=== PATIENT | female | born 1995 | race Caucasian/White ===

== ENCOUNTER 2017-01-14 16:57 | Emergency (ER) | payer BC, OTHER ==
[2017-01-14 17:01] VITALS: BP 121/80
[2017-01-14] MEDS ORDERED: ACETAMINOPHEN 325 MG TABLET PO ONE (18:04)
[2017-01-14] MEDS ORDERED: PROMETHAZINE HCL 25 MG TABLET PO ONE (18:04)
--- NOTE | 2017-01-14 18:04 | ER Document Report ---
ED Medical Screen (RME) - General Stated Complaint: HEADACHE Mode of Arrival: Ambulatory Information source: Patient Notes: Patient complains of headache pain off and on for several years. Patient complains of right-sided headache pain for the past 2 weeks. Patient states that headache has waxed and waned in intensity. No fever or head injury. Patient does complain of some nausea. hx; none I have greeted and performed a rapid initial assessment of this patient. A comprehensive ED assessment and evaluation of the patient, analysis of test results and completion of the medical decision making process will be conducted by additional ED providers. TRAVEL OUTSIDE OF THE [place] IN LAST 30 DAYS: No - Related Data Allergies/Adverse Reactions: No Known Allergies Allergy (Verified 01/14/17 18:01) Past Medical History Endocrine Medical History: Denies: Hx Diabetes Mellitus Type 1, Hx Diabetes Mellitus Type 2, Hx Hyperthyroidism Psychiatric Medical History: Reports: Hx Anxiety, Hx Bipolar Disorder, Hx Depression Past Surgical History: Reports: Hx Tubal Ligation - Immunizations Hx Diphtheria, Pertussis, Tetanus Vaccination: Yes - given 2009 Physical Exam - Vital signs Vitals: Temp Pulse Resp BP Pulse Ox 98.2 F 78 14 121/80 100 01/14/17 17:00 01/14/17 17:00 01/14/17 17:00 01/14/17 17:00 01/14/17 17:00 - Neurological Neuro grossly intact: Yes Cognition: Normal Jimmy Coma Scale Eye Opening: Spontaneous Jimmy Coma Scale Verbal: Oriented Jimmy Coma Scale Motor: Obeys Commands Jimmy Coma Scale Total: 15 Course - Vital Signs Vital signs: Temp Pulse Resp BP Pulse Ox 98.2 F 78 14 121/80 100 01/14/17 17:00 01/14/17 17:00 01/14/17 17:00 01/14/17 17:00 01/14/17 17:00
[2017-01-14] MEDS ORDERED: NORMAL SALINE 1000 ML 1,000 ML IV ONE (20:41)
[2017-01-14] MEDS ORDERED: KETOROLAC TROMETHAMINE INJ/PF 30 MG/1 ML SDV IV ONE (20:41)
[2017-01-14] MEDS ORDERED: DIPHENHYDRAMINE HCL 50 MG/ML VIAL IV ONE (20:41)
[2017-01-14] MEDS ORDERED: ONDANSETRON HCL INJ/PF 4 MG/2 ML SDV IV ONE (20:41)
--- NOTE | 2017-01-14 20:43 | ER Document Report ---
ED Headache - General Chief Complaint: Headache Stated Complaint: HEADACHE Time seen by provider: 20:42 Mode of Arrival: Ambulatory Information source: Patient Notes: 21-year-old female presents to ED for headache off and on for several years worse for the last 3 months. She has not been to a neurologist. She complains of right-sided head pain for the last 2 weeks. He states the headache comes and goes but like is that for the last 2 weeks has been worse. She does have some nausea. TRAVEL OUTSIDE OF THE [place] IN LAST 30 DAYS: No - HPI Patient complains to provider of: "Migraine" Patient reports: Hx chronic headaches Onset: Other - Several years this headache is been going on and off for 2 weeks Timing: Still present Quality of pain: Sharp, Throbbing Severity: Moderate Pain Level: 3 Associated symptoms: Nausea/vomiting Exacerbated by: Light, Noise Similar symptoms previously: Yes Recently seen / treated by doctor: No - Related Data Allergies/Adverse Reactions: No Known Allergies Allergy (Verified 01/14/17 18:01) Past Medical History - General Information source: Patient - Social History Smoking Status: Never Smoker Chew tobacco use (# tins/day): No Frequency of alcohol use: None Drug Abuse: None Lives with: Spouse/Significant other Family History: Arthritis, CAD, COPD, CVA, DM, Hyperlipidemia, Hypertension Patient has suicidal ideation: No Patient has homicidal ideation: No - Medical History Medical History: Other - Anemia - Past Medical History Cardiac Medical History: Reports: Hx Hypertension Pulmonary Medical History: Reports: None EENT Medical History: Reports: None Neurological Medical History: Reports: Hx Migraine - About 4 years worse last 2- 3 months and even worse the last 2-3 weeks Endocrine Medical History: Reports: None Renal/ Medical History: Reports: None Malignancy Medical History: Reports: None GI Medical History: Reports: None Musculoskeltal Medical History: Reports Hx Musculoskeletal Trauma Skin Medical History: Reports None Psychiatric Medical History: Reports: Hx Anxiety, Hx Bipolar Disorder, Hx Depression, Other - depression with each child Traumatic Medical History: Reports: None Infectious Medical History: Reports: None Past Surgical History: Reports: Hx Tubal Ligation - Immunizations Hx Diphtheria, Pertussis, Tetanus Vaccination: Yes - given 2009 Hx Pneumococcal Vaccination: 10/25/00 Review of Systems - Review of Systems Constitutional: No symptoms reported EENT: Nose discharge, Sinus discharge Cardiovascular: No symptoms reported Respiratory: Cough Gastrointestinal: No symptoms reported Genitourinary: No symptoms reported Female Genitourinary: No symptoms reported Musculoskeletal: No symptoms reported Skin: No symptoms reported Hematologic/Lymphatic: No symptoms reported Neurological/Psychological: No symptoms reported -: Yes All other systems reviewed and negative Physical Exam - Vital signs Vitals: Temp Pulse Resp BP Pulse Ox 98.2 F 78 14 121/80 100 01/14/17 17:00 01/14/17 17:00 01/14/17 17:00 01/14/17 17:00 01/14/17 17:00 Interpretation: Normal - General General appearance: Appears well, Alert - HEENT Head: Normocephalic, Atraumatic Eyes: Normal Pupils: PERRL Visual salazar normal: Yes Ears: Normal External canal: Normal Tympanic membrane: Normal Sinus: Normal Nasal: Swelling, Clear rhinorrhea Mouth/Lips: Normal, Other Pharynx: Normal Neck: Normal - Respiratory Respiratory status: No respiratory distress Chest status: Nontender Breath sounds: Normal Chest palpation: Normal - Cardiovascular Rhythm: Regular Heart sounds: Normal auscultation Murmur: No - Abdominal Inspection: Normal Distension: No distension Bowel sounds: Normal Tenderness: Nontender Organomegaly: No organomegaly - Back Back: Normal, Nontender - Extremities General upper extremity: Normal inspection, Nontender, Normal color, Normal ROM , Normal temperature General lower extremity: Normal inspection, Nontender, Normal color, Normal ROM , Normal temperature, Normal weight bearing. No: Denise's sign - Neurological Neuro grossly intact: Yes Cognition: Normal Orientation: AAOx4 Jimmy Coma Scale Eye Opening: Spontaneous Jimmy Coma Scale Verbal: Oriented Jimmy Coma Scale Motor: Obeys Commands [place] Coma Scale Total: 15 Speech: Normal Cranial nerves: Normal Cerebellar coordination: Normal Motor strength normal: LUE, RUE, LLE, RLE Additional motor exam normals: Equal assistance coordinator Babinski reflex: Normal (flexor plantar) Sensory: Normal - Psychological Associated symptoms: Normal affect, Normal mood - Skin Skin Temperature: Warm Skin Moisture: Dry Skin Color: Normal Course - Re-evaluation Re-evalutation: 01/14/17 22:36 Cranial nerves grossly intact patient has a history of migraines. She also has a slight cold with postnasal drip. Patient has been informed that she needs to get herself a regular primary doctor she has a psychologist at [facility]. Told her she needs to get a neurology consult to treat her migraines and to control her migraines. Patient received relief with her Zofran, Benadryl, Toradol and IV fluids she states now here he had just feels a little sore does not hurt like it was before. Patient verbalized understanding of the need to get a neurologist to control her migraines. - Vital Signs Vital signs: Temp Pulse Resp BP Pulse Ox 98.2 F 78 14 121/80 100 01/14/17 17:00 01/14/17 17:00 01/14/17 17:00 01/14/17 17:00 01/14/17 17:00 Discharge - Discharge Clinical Impression: Headache Qualifiers: Headache type: unspecified Headache chronicity pattern: chronic headache Intractability: not intractable Qualified Code(s): R51 - Headache Condition: Stable Disposition: HOME, SELF-CARE Additional Instructions: HEADACHE: The physician does not feel that the headache you are experiencing has a serious underlying cause. Most headaches are due to emotional stress, with resultant muscle tension (tension headache). Occasionally, headaches are secondary to changes in the blood vessels of the scalp (vascular headache and migraine headache). Sometimes, a headache is the first symptom of another developing illness, such as a viral infection. You have no evidence of stroke, bleeding, meningitis, or other serious cause of your headache. The treatment of headaches varies with the severity and cause of the pain. Not all headaches need pain shots. In fact, there is evidence that using narcotics for headaches may make them worse in the long run. The physician will determine the therapy that's in your best interest. If you develop a fever, if the headache is different from any you've previously experienced, or if the headache progressively worsens, then call your physician at once or go to the emergency room. USE OF DIPHENHYDRAMINE: Diphenhydramine (Benadryl) is an antihistamine and has been recommended to help treat your headache and to prevent side effects of other medications used to treat headaches. The medication can be repeated four times daily. Age Elixir (12.5 mg/tsp) 25 mg pill adult 1-2 tabs Antihistamines may cause drowsiness, especially with the first dose. Do not operate machinery or drive while under the effects of the medication. Do not combine the medication with alcohol, or with any other medication without talking to your doctor. ANTINAUSEA MEDICATION: You have been given a medication to suppress nausea and vomiting. This type of medication can be given as a shot, pill, or suppository. It will usually last for many hours. Pills and shots usually last six to eight hours, suppositories last about 12 hours. For the typical illness, only one or two doses of the medication may be necessary. Mild lightheadedness may occur. This type of medicine can cause drowsiness. Do not drive or operate dangerous machinery while under its influence. Do not mix with alcohol. See your doctor at once if you have muscle spasms or tightness, or uncontrollable motions (particularly of the neck, mouth, or jaw). Persistent vomiting or severe lightheadedness should also be evaluated by the physician. TORADOL INJECTION: You have been given an injection of ketorolac tromethamine (Toradol). This is an excellent, safe drug for pain control. It also has potent antiinflammatory action. You should have significant pain relief within about one hour. Toradol is not addicting and is non-sedating. It does not interfere with driving or work. Call or return if you develop itching, hives, shortness of breath, or rash. Intravenous (IV) Fluids As part of your care today, you received intravenous (IV) fluids. IV fluids are administered to patients who are dehydrated or to those who have certain chemical (electrolyte) abnormalities that need correcting. FOLLOW-UP CARE: If you have been referred to a physician for follow-up care, call the physician s office for an appointment as you were instructed or within the next two days. If you experience worsening or a significant change in your symptoms, notify the physician immediately or return to the Emergency Department at any time for re-evaluation. Forms: Return to Work Referrals: HELEN JEFFERY MD [Primary Care Provider] - Follow up as needed
== END 2017-01-14 22:57 | disposition home or self-care (01) ==
LOC: ER 16:57
DX: G43.909 Migraine, unspecified, not intractable, without status migrainosus (principal); R11.2 Nausea with vomiting, unspecified; I10 Essential (primary) hypertension; J34.89 Other specified disorders of nose and nasal sinuses; R05 Cough; R09.82 Postnasal drip
CPT/HCPCS: 99283; 96374; 96375; J1200; J1885; J2405

== ENCOUNTER 2017-03-10 22:00 | Emergency (ER) | payer BC ==
[2017-03-10] MEDS ORDERED: NORMAL SALINE 1000 ML 1,000 ML IV ONE (22:17)
--- NOTE | 2017-03-10 22:44 | ER Document Report ---
ED Psych Disorder / Suicide <DAKOTA NGUYENIME - Last Filed: 03/11/17 14:27> <VERITO LUNA - Last Filed: 03/11/17 15:24> - General Mode of Arrival: Medic Information source: Patient, Emergency Med Personnel, [facility] Records TRAVEL OUTSIDE OF THE [place] IN LAST 30 DAYS: No <CASEY NOONAN - Last Filed: 03/12/17 11:51> - General Chief Complaint: Overdose Stated Complaint: SUICIDAL IDEATION,POSSIBLE OVERDOSE Time Seen by Provider: 03/10/17 22:12 Notes: This 21-year-old female patient comes emergency room by EMS after an Ambien overdose. By history she took 4 Ambien at 4 PM today and then took 8 more about 9 PM. Review of the [place] controlled substance database shows these are 10 mg Ambien. 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 She states that she has been feeling down for quite some time, and today "did not want to feel anything". She denies actually trying to kill herself. She lives with her boyfriend, she has 3 children ages almost 2, 3 and 4 who live with her grandmother. (SARAN,CASEY) - Related Data Allergies/Adverse Reactions: No Known Allergies Allergy (Verified 01/14/17 18:01) Past Medical History - General Information source: Patient, Law Enforcement, [facility] Records - Social History Smoking Status: Never Smoker Cigarette use (# per day): No Chew tobacco use (# tins/day): No Smoking Education Provided: No Frequency of alcohol use: None Drug Abuse: None Occupation: UNEMPLOYED Lives with: Friend - BOYFRIEND Family History: Arthritis, CAD, COPD, CVA, DM, Hyperlipidemia, Hypertension Patient has suicidal ideation: Yes Patient has homicidal ideation: No - Past Medical History Cardiac Medical History: Reports: Hx Hypertension Neurological Medical History: Reports: Hx Migraine - About 4 years worse last 2- 3 months and even worse the last 2-3 weeks Musculoskeltal Medical History: Reports Hx Musculoskeletal Trauma Psychiatric Medical History: Reports: Hx Anxiety, Hx Bipolar Disorder, Hx Depression Past Surgical History: Reports: Hx Tubal Ligation - Immunizations Hx Diphtheria, Pertussis, Tetanus Vaccination: Yes - given 2009 Hx Pneumococcal Vaccination: 10/25/00 <CASEY NOONAN - Last Filed: 03/12/17 11:51> Review of Systems - Review of Systems Constitutional: No symptoms reported EENT: No symptoms reported Cardiovascular: No symptoms reported Respiratory: No symptoms reported Gastrointestinal: No symptoms reported Genitourinary: No symptoms reported Female Genitourinary: See HPI - Just finished my period. Musculoskeletal: No symptoms reported Skin: No symptoms reported Hematologic/Lymphatic: No symptoms reported Neurological/Psychological: Depression, Anxiety <CASEY NOONAN - Last Filed: 03/12/17 11:51> Physical Exam - Vital signs Interpretation: Normal - General General appearance: Other - A little drowsy, easily aroused for H&P. In distress: None - HEENT Head: Normocephalic, Atraumatic Eyes: Normal Pupils: PERRL Mucous membranes: Normal Neck: Normal - Respiratory Respiratory status: No respiratory distress - Cardiovascular Rhythm: Regular - Abdominal Inspection: Obese - Back Back: Normal - Extremities General upper extremity: Normal inspection General lower extremity: Normal inspection - Neurological Neuro grossly intact: Yes Cognition: Normal Orientation: AAOx4 - Psychological Associated symptoms: Depressed - Skin Skin Temperature: Warm Skin Moisture: Dry Skin Color: Normal <CASEY NOONAN - Last Filed: 03/12/17 11:51> - Vital signs Vitals: Temp Pulse Resp BP Pulse Ox 97.8 F 74 18 116/72 97 03/10/17 22:07 03/10/17 22:07 03/10/17 22:07 03/10/17 22:07 03/10/17 22:07 Course - Laboratory Result Diagrams: 03/11/17 00:29 03/11/17 00:29 <BATOOL NGUYEN - Last Filed: 03/11/17 14:27> - Laboratory Result Diagrams: 03/11/17 00:29 03/11/17 00:29 <VERITO LUNA - Last Filed: 03/11/17 15:24> - Laboratory Result Diagrams: 03/11/17 00:29 03/11/17 00:29 - EKG Interpretation by Ct EKG shows normal: Sinus rhythm, [place], Intervals, QRS Complexes, ST-T Waves Rate: Normal - 95 Rhythm: NSR - Transfer of Care Care transferred to following provider: Dr. Smith <CASEY NOONAN - Last Filed: 03/12/17 11:51> - Vital Signs Vital signs: Temp Pulse Resp BP Pulse Ox 98.5 F 91 20 112/82 98 03/11/17 15:30 03/11/17 15:30 03/11/17 15:30 03/11/17 15:30 03/11/17 15:30 - Laboratory Laboratory results interpreted by me: 03/10/17 03/11/17 03/11/17 23:45 00:29 00:29 Seg Neutrophils % 79.6 H Absolute Neutrophils 8.4 H Urine Nitrite POSITIVE H Ur Leukocyte Esterase TRACE H Salicylates < 1.0 L Acetaminophen < 10 L - Transfer of Care Notes: 03/11/17 02:02 Pt pending psych eval in the morning. (CASEY NOONAN) Discharge <BATOOL NGUYEN - Last Filed: 03/11/17 14:27> <VERITO LUNA - Last Filed: 03/11/17 15:24> <CASEY NOONAN - Last Filed: 03/12/17 11:51> - Discharge Clinical Impression: Substance abuse, Anxiety Overdose Qualifiers: Encounter type: initial encounter Injury intent: intentional self-harm Qualified Code(s): T50.902A - Poisoning by unspecified drugs, medicaments and biological substances, intentional self-harm, initial encounter Bipolar disorder, unspecified Qualifiers: Active/Remission status: currently active Current bipolar episode type: depressed Current episode severity: mild Qualified Code(s): F31.31 - Bipolar disorder, current episode depressed, mild Clinical Impression: (Ruled Out): Depression Condition: Stable Disposition: HOME, SELF-CARE Additional Instructions: DEPRESSION: Your evaluation reveals that you have mental depression. While symptoms may be vague, they often include disturbance of sleep, fatigue, loss of appetite , and general loss of interest in life. While depression may be a side effect of drugs, or a reaction to a major change in your life, many cases have no known cause. If depression is acute, and related to a major loss in your life, you can expect it to clear completely with time. If you have been depressed a long time , are prone to repeated bouts of depression or low mood, or have been thinking of suicide, get help. Depression can be treated with anti-depressant medication and counselling. Long-term depression will often take a few weeks to clear, even with appropriate medication. Follow-up care is important. SUICIDAL IDEATION: Suicidal ideation is a common medical term for thoughts about suicide, which may be as detailed as a formulated plan, without the suicidal act itself. Although most people who undergo suicidal ideation do not commit suicide, some go on to make suicide attempts. The range of suicidal ideation varies greatly from fleeting to detailed planning, role playing, and unsuccessful attempts. While thoughts about suicide are common, most people do not carry out serious actions to commit suicide. Based upon your evaluation and discussion with you, we do not believe you are currently at risk to act upon your thoughts of suicide. You have agreed to return to the Emergency Department, at any time , if you feel inclined to act upon your suicidal thoughts. FOLLOW-UP CARE: Please follow up with outpatient provider, [facility] on 03/12/2017 at 8:00am. Please bring your ID, social security card and insurance card to your appointment. If you experience worsening or a significant change in your symptoms, notify the physician immediately or return to the Emergency Department at any time for re- evaluation. Referrals: [facility] [Outside] - 03/12/17 8:00 am Scribe Attestation: 03/12/17 11:51 I personally performed the services described in the documentation, reviewed and edited the documentation which was dictated to the scribe in my presence, and it accurately records my words and actions. (CASEY NOONAN)
[2017-03-11 00:24] LABS: APPEARANCE,URINE SLIGHTLY-CLOUDY; BILIRUBIN,URINE NEGATIVE (NEGATIVE); GLUCOSE, URINE NEGATIVE (NEGATIVE); KETONES,URINE NEGATIVE (NEGATIVE); LEUKOCYTE ESTERASE,URINE TRACE (NEGATIVE); NITRITE,URINE POSITIVE (NEGATIVE); PROTEIN,URINE NEGATIVE (NEGATIVE); URINE SPECIFIC GRAVITY 1.026; UROBILINOGEN,URINE NEGATIVE mg/dL (<2.0)
[2017-03-11 00:29] LABS: URINE BARBITURATES SCREEN NEGATIVE; URINE METHADONE SCREEN NEGATIVE; URINE OPIATES LOW NEGATIVE; URINE PHENCYCLIDINE SCREEN NEGATIVE
[2017-03-11 00:39] LABS: ABSOLUTE BASOPHILS # (AUTO) 0.1 10^3/uL (0.0-0.2); ABSOLUTE LYMPHOCYTES (AUTO) 1.7 10^3/uL (0.5-4.7); ABSOLUTE MONOCYTES (AUTO) 0.4 10^3/uL (0.1-1.4); ABSOLUTE NEUT (AUTO) 8.4 10^3/uL (1.7-8.2); BASOPHILS % (AUTO) 0.6 % (0-2); EOSINOPHILS % (AUTO) 0.2 % (0-6); HEMATOCRIT 40.5 % (36.0-47.0); HEMOGLOBIN 14.4 g/dL (12.0-15.5); HGB HCT DIFFERENCE 2.7; LYMPHOCYTES % (AUTO) 16.1 % (13-45); MEAN CORPUSCULAR HEMOGLOBIN 29.3 pg (27.0-33.4); MEAN CORPUSCULAR HGB CONC 35.6 g/dL (32.0-36.0); MEAN CORPUSCULAR VOLUME 82 fl (80-97); MONOCYTES % (AUTO) 3.5 % (3-13); RED BLOOD COUNT 4.91 10^6/uL (3.72-5.28); SEGMENTED NEUTROPHILS % (AUTO) 79.6 % (42-78); WHITE BLOOD COUNT 10.5 10^3/uL (4.0-10.5)
[2017-03-11 00:58] LABS: ALANINE AMINOTRANSFERASE 31 U/L (9-52); ALBUMIN 4.5 g/dL (3.5-5.0); ALCOHOL < 10 mg/dL (NONE DETECTED); ALKALINE PHOSPHATASE 75 U/L (38-126); ANION GAP 12 (5-19); ASPARTATE AMINO TRANSFERASE 22 U/L (14-36); BILIRUBIN,DIRECT 0.2 mg/dL (0.0-0.4); BILIRUBIN,TOTAL 1.2 mg/dL (0.2-1.3); BLOOD UREA NITROGEN 13 mg/dL (7-20); CALCIUM 9.7 mg/dL (8.4-10.2); CARBON DIOXIDE 22 mmol/L (22-30); CHLORIDE 105 mmol/L (98-107); CREATININE RESULT 0.71 mg/dL (0.52-1.25); GLUCOSE 104 mg/dL (75-110); POTASSIUM 4.5 mmol/L (3.6-5.0); SODIUM 138.8 mmol/L (137-145); TOTAL PROTEIN 7.8 g/dL (6.3-8.2)
--- NOTE | 2017-03-11 10:38 | EKG REPORT ---
SEVERITY:- NORMAL ECG - SINUS RHYTHM : Confirmed by: Olga Lyn MD 11-Mar-2017 10:37:29
--- NOTE | 2017-03-11 14:27 | PSYCHOLOGICAL NOTE ---
Psych Note - Psych Note Psych Note: This 21-year-old female patient comes emergency room by EMS after an Ambien overdose. By history she took 4 Ambien at 4 PM today and then took 8 more about 9 PM. Review of the [place] controlled substance database shows these are 10 mg Ambien. 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 She states that she has been feeling down for quite some time, and today "did not want to feel anything". She denies actually trying to kill herself. She lives with her boyfriend, she has 3 children ages almost 2, 3 and 4 who live with her grandmother. Patient states she took "12-13 Ambien" when ask how the patient knew that was how much she took, she stated that was how much was left in the bottle. She continued to disclose she had a "really bad day" because "everything was happening and I didn't take my normal medication." She continued to disclose that it has been a week since she took her prescribed medication. She states her medication made her nauseous. She disclosed her mental health provider told her that it would "be a while" before she felt anything but that she would "then feel nauseous." She disclosed that she took the medication for a month and then stopped because she started to feel nausea and didn't like it. Patient was supposed to follow up with [facility] however she rep[orts she is unable to because she "owe them money and they put a hold on my account." Patient's boyfriend, [place] [phone], states he will be part of the discharge plan and will ensure the patient has no access to medications and weapons. He continued to disclose that he will assist the patient in following up with outpatient provider for mental health and taking her medications as prescribed. Patient is alert and orientated to person, place, time and circumstance. Mood is euthymic with congruent affect; clinician notes some irritability with boyfriend. Patient denies suicidal and homicidal ideation. clinician notes patient demonstrated suicidal gesture; however per history, patient has sedative anxiolytic drug abuse issue. patient denies auditory and visual hallucinations; patient is not demonstrating behaviour congruent with responding to internal stimuli (i.e. good eye contact and though processes are organized). No delusions are noted. Thought process is organized and linear. Eye contact was well maintained. Attention and concentration and good. Insight , judgment and impulse control are fair. 296.80 (F31.9) Unspecified Bipolar and related disorder per history provided by patient. 300.00 (F41.9) Unspecified Anxiety disorder per history provided by patient 292.9 (F13.99) Unspecified sedative-, hypnotic-, or anxiolyitc-related disorder per history Impression/plan: patient is considered psychiatrically cleared for discharge. Patient does not meet IVC criteria per [place] GS 122C. Patient is recommended to follow up with outpatient services through [facility]. Patient denies suicidal and homicidal ideation and patient's live in boyfriend agrees to be part of the discharge plan. Dr. Mercado was consulted on the care and management of this patient; attending physician is in agreement with recommendations and disposition.
--- NOTE | 2017-03-11 15:29 | ER Document Report ---
Doctor's Note Notes: 03/11/17 15:27 Rounds: Chart reviewed and patient interview. Vital signs are all normal. Lab studies are all essentially normal. Patient appears to be medically stable for transfer or discharge. Patient has been assessed by mental health and they feel that she can be discharged and follow-up as an outpatient tomorrow morning. Patient says she is no longer feeling suicidal. Patient will be discharged for outpatient follow-up. Miguel Werner MD
[2017-03-11 15:35] VITALS: BP 112/82
== END 2017-03-11 15:35 | disposition home or self-care (01) ==
LOC: ER 22:00
DX: F19.10 Other psychoactive substance abuse, uncomplicated (principal); T42.6X2A Poisoning by other antiepileptic and sedative-hypnotic drugs, intentional self-harm, initial encounter; F31.31 Bipolar disorder, current episode depressed, mild; F41.9 Anxiety disorder, unspecified; I10 Essential (primary) hypertension; F13.99 Sedative, hypnotic or anxiolytic use, unspecified with unspecified sedative, hypnotic or anxiolytic-induced disorder; Z98.51 Tubal ligation status
CPT/HCPCS: 36415; 80053; 80307; 81001; 84703; 85025; 93005; 93010; 99285

== ENCOUNTER 2018-03-07 15:05 | Emergency (ER) | payer SELFPAY ==
[2018-03-07] MEDS ORDERED: ONDANSETRON 4 MG TAB.RAPDIS PO ONE (16:26)
[2018-03-07 16:30] VITALS: BP 121/75
--- NOTE | 2018-03-07 16:31 | ER Document Report ---
ED General - General Chief Complaint: Abdominal pain/back pain/N/V / STEEL Stated Complaint: BACK/ABDOMINAL PAIN Time Seen by Provider: 03/07/18 16:21 Notes: 22-year-old female here with complaints of lower back pain abdominal cramping nausea vomiting shortness of breath body aches ongoing since July of last year. All the symptoms are intermittent. She has been taking Aleve for the symptoms. She does not have anything for the nausea. She denies any fevers chills dysuria hematuria hesitancy numbness tingling weakness incontinence retention. She does not have a doctor and cannot tell me why she has not established care with one. TRAVEL OUTSIDE OF THE [place] IN LAST 30 DAYS: No - Related Data Allergies/Adverse Reactions: No Known Allergies Allergy (Verified 01/14/17 18:01) Past Medical History - Social History Smoking Status: Never Smoker Chew tobacco use (# tins/day): No Frequency of alcohol use: Occasional Drug Abuse: Marijuana Family History: Arthritis, CAD, COPD, CVA, DM, Hyperlipidemia, Hypertension Patient has suicidal ideation: No Patient has homicidal ideation: No - Past Medical History Cardiac Medical History: Reports: Hx Hypertension Neurological Medical History: Reports: Hx Migraine - About 4 years worse last 2- 3 months and even worse the last 2-3 weeks Renal/ Medical History: Denies: Hx Peritoneal Dialysis Musculoskeltal Medical History: Reports Hx Musculoskeletal Trauma Psychiatric Medical History: Reports: Hx Anxiety, Hx Bipolar Disorder, Hx Depression Past Surgical History: Reports: Hx Tubal Ligation - Immunizations Hx Diphtheria, Pertussis, Tetanus Vaccination: Yes - given 2009 Hx Pneumococcal Vaccination: 10/25/00 Review of Systems - Review of Systems Notes: See history of present illness for pertinent positive review of systems; otherwise all review of systems have been reviewed and are negative Physical Exam - Vital signs Vitals: Temp Pulse Resp BP Pulse Ox 98.3 F 73 18 126/86 H 99 03/07/18 15:14 03/07/18 15:14 03/07/18 15:14 03/07/18 15:14 03/07/18 15:14 - Notes Notes: PHYSICAL EXAMINATION: GENERAL: Well-appearing and in no acute distress. HEAD: Atraumatic, normocephalic. EYES: Pupils equal round and reactive to light, extraocular movements intact, sclera anicteric, conjunctiva are normal. ENT: nares patent, oropharynx clear without exudates. Moist mucous membranes. NECK: Normal range of motion, supple without lymphadenopathy LUNGS: CTAB and equal. No wheezes rales or rhonchi. HEART: Regular rate and rhythm without murmurs ABDOMEN: Soft, no tenderness. No facial grimacing/wincing upon palpation. No guarding, no rebound. BACK: No thoracic or lumbar back tenderness to palpation; strength 5/5 with intact sensation BLEs EXTREMITIES: Normal range of motion, no pitting edema. No cyanosis. NEUROLOGICAL: Cranial nerves grossly intact. Normal sensory/motor exams. PSYCH: Normal mood, normal affect. SKIN: Warm, Dry, normal turgor, no rashes or lesions noted Course - Re-evaluation Re-evalutation: 03/07/18 16:30 MEDICAL DECISION MAKING: Ongoing chronic symptoms She does not have an acute emergency medical condition at this time Discussed with her follow-up with a PCP If no PCP, discussed with [facility] and info provided in DC instructions Home with prescription Zofran meloxicam Patient understands and agrees to the plan of care - Vital Signs Vital signs: Temp Pulse Resp BP Pulse Ox 98.3 F 73 18 126/86 H 99 03/07/18 15:14 03/07/18 15:14 03/07/18 15:14 03/07/18 15:14 03/07/18 15:14 Discharge - Discharge Clinical Impression: Abdominal cramping Chronic low back pain without sciatica Qualifiers: Back pain laterality: bilateral Qualified Code(s): M54.5 - Low back pain; G89.29 - Other chronic pain; G89.29 - Other chronic pain Nausea & vomiting Qualifiers: Vomiting type: unspecified Vomiting Intractability: non-intractable Qualified Code(s): R11.2 - Nausea with vomiting, unspecified Condition: Good Disposition: HOME, SELF-CARE Additional Instructions: You were seen in the emergency department at [facility]. Use the prescribed medication as needed for your symptoms. Please followup with a primary physician in the next few days for further management/evaluation. Please return to the emergency department for worsening of symptoms or any symptom that you deem to be concerning or life-threatening. Thank you for allowing us to be part of your care. Prescriptions: Meloxicam 7.5 mg PO DAILYP PRN #7 tablet PRN Reason: Ondansetron [Zofran Odt 4 mg Tablet] 1 tab PO Q4H PRN #15 tab.rapdis PRN Reason: For Nausea/Vomiting Referrals: [facility] [Provider Group] - 03/07/18
== END 2018-03-07 16:32 | disposition home or self-care (01) ==
LOC: ER 15:05
DX: R10.9 Unspecified abdominal pain (principal); R11.2 Nausea with vomiting, unspecified; R06.02 Shortness of breath; M54.5 Low back pain; G89.29 Other chronic pain; I10 Essential (primary) hypertension; Z98.51 Tubal ligation status
CPT/HCPCS: 99283; S0119

== ENCOUNTER 2020-06-25 08:27 | Emergency (ER) | payer SELFPAY ==
--- NOTE | 2020-06-25 10:36 | ER Document Report ---
ED GI/ - General Chief Complaint: Abdominal Pain Stated Complaint: ABDOMINAL PAIN Time Seen by Provider: 06/25/20 10:00 Notes: CHIEF COMPLAINT: Pelvic pain HPI: 24-year-old female presenting for pelvic pain for the last week. States she has very irregular menstrual cycles. Had a menstrual cycle last week that lasted 4 days and the bleeding stopped but she continued to have pelvic pain more prominent on the left side no history of ovarian cyst. Is not bleeding currently. No fever. No nausea. No vomiting ROS: See HPI - all other systems were reviewed and are otherwise negative Constitutional: no fever or recent illness Eyes: no drainage, no blurred vision ENT: no runny nose, no sore throat Cardiovascular: no chest pain Resp: no SOB, no cough GI: no vomiting, no diarrhea : no dysuria, no vaginal discharge, positive pelvic pain Integumentary: no rash Allergy: no hives Musculoskeletal: no extremity pain or swelling Neurological: no numbness/tingling, no weakness MEDICATIONS: I agree with the patient medications as charted by the RN. ALLERGIES: I agree with the allergies as charted by the RN. PAST MEDICAL HISTORY/PAST SURGICAL HISTORY: Reviewed and agree as charted by RN. SOCIAL HISTORY: Reviewed and agree as charted by RN. FAMILY HISTORY: No significant familial comorbid conditions directly related to patient complaint EXAM: Reviewed vital signs as charted by RN. CONSTITUTIONAL: Alert and oriented and responds appropriately to questions. Well-appearing; well-nourished HEAD: Normocephalic; atraumatic EYES: PERRL; Conjunctivae clear, sclerae non-icteric ENT: normal nose; no rhinorrhea; moist mucous membranes; pharynx without lesions noted NECK: Supple without meningismus; non-tender; no cervical lymphadenopathy, no masses CARD: RRR; no murmurs, no clicks, no rubs, no gallops; symmetric distal pulses RESP: Normal chest excursion without splinting or tachypnea; breath sounds clear and equal bilaterally; no wheezes, no rhonchi, no rales ABD/GI: Normal bowel sounds; non-distended; soft, non-tender, no rebound, no guarding; no palpable organomegaly or masses : 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 External genitalia normal. No skin lesions noted. Pelvic Exam: No active bleeding. No purulent discharge. Cervix appears normal. No CMT. No lesions or masses. Uterus normal size and non tender. Right/Left adnexa normal size and mildly tender left adnexa. BACK: The back appears normal and is non-tender to palpation, there is no CVA tenderness EXT: Normal ROM in all joints; non-tender to palpation; no cyanosis, no effusions, no edema SKIN: Normal color for age and race; warm; dry; good turgor; no acute lesions noted NEURO: Moves all extremities equally; Motor and sensory function intact PSYCH: The patient's mood and manner are appropriate. Grooming and personal hygiene are appropriate. MDM: 24-year-old female presenting with pelvic pain over the last week which she states is not normal for her. Will obtain ultrasound to evaluate for ovarian cyst TRAVEL OUTSIDE OF THE [place] IN LAST 30 DAYS: No - Related Data Allergies/Adverse Reactions: No Known Allergies Allergy (Verified 01/14/17 18:01) Past Medical History - Social History Smoking Status: Unknown if Ever Smoked Family History: Arthritis, CAD, COPD, CVA, DM, Hyperlipidemia, Hypertension - Past Medical History Cardiac Medical History: Reports: Hx Hypertension Neurological Medical History: Reports: Hx Migraine - About 4 years worse last 2- 3 months and even worse the last 2-3 weeks Renal/ Medical History: Denies: Hx Peritoneal Dialysis Musculoskeletal Medical History: Reports Hx Musculoskeletal Trauma Psychiatric Medical History: Reports: Hx Anxiety, Hx Bipolar Disorder, Hx Depression Past Surgical History: Reports: Hx Tubal Ligation - Immunizations Hx Diphtheria, Pertussis, Tetanus Vaccination: Yes - given 2009 Hx Pneumococcal Vaccination: 10/25/00 Physical Exam - Vital signs Vitals: Temp Pulse Resp BP Pulse Ox 97.9 F 59 L 20 127/78 H 100 06/25/20 08:32 06/25/20 08:32 06/25/20 08:32 06/25/20 08:32 06/25/20 08:32 Course - Re-evaluation Re-evalutation: 06/25/20 12:13 Patient is a 2.9 right sided hemorrhagic ovarian cyst I discussed this with the patient she will follow-up with [facility] - Vital Signs Vital signs: Temp Pulse Resp BP Pulse Ox 97.9 F 59 L 20 127/78 H 100 06/25/20 08:32 06/25/20 08:32 06/25/20 08:32 06/25/20 08:32 06/25/20 08:32 - Laboratory Laboratory results interpreted by me: 06/25/20 10:30 Urine Blood SMALL H Discharge - Discharge Clinical Impression: Acute pelvic pain, female, Hemorrhagic cyst of right ovary Condition: Stable Disposition: HOME, SELF-CARE Additional Instructions: Pain medications as prescribed, follow-up with [facility]IANCE [facility]ICER for further evaluation and treatment call for appointment. It was noted on your imaging studies today that you have an ovarian cyst on the right ovary. This is likely causing your pain Prescriptions: Naproxen 500 mg PO BID PRN #14 tablet PRN Reason: Oxycodone HCl/Acetaminophen [Percocet 5-325 mg Tablet] 1 tab PO Q4H PRN #15 tab PRN Reason: Referrals: ETHAN CURIEL MD [ACTIVE PROVISIONAL STAFF] - Follow up as needed
[2020-06-25 10:58] LABS: T.VAGINALIS (WET MOUNT) NO TRICHOMONAS SEEN; YEAST (WET MOUNT) NO YEAST SEEN
[2020-06-25 10:59] LABS: RBCS (WET MOUNT) NO RBCS SEEN; WBCS (WET MOUNT) RARE WBCS SEEN
[2020-06-25 11:10] LABS: APPEARANCE,URINE CLEAR; BILIRUBIN,URINE NEGATIVE (NEGATIVE); COLOR,URINE YELLOW; GLUCOSE, URINE NEGATIVE (NEGATIVE); KETONES,URINE NEGATIVE (NEGATIVE); LEUKOCYTE ESTERASE,URINE NEGATIVE (NEGATIVE); NITRITE,URINE NEGATIVE (NEGATIVE); PROTEIN,URINE NEGATIVE (NEGATIVE); URINE SPECIFIC GRAVITY 1.016; UROBILINOGEN,URINE NEGATIVE mg/dL (<2.0)
--- NOTE | 2020-06-25 12:00 | RADIOLOGY REPORT (SQ) ---
EXAM DESCRIPTION: U/S NON OB PEL TV W/DOPPLER IMAGES COMPLETED DATE/TIME: 06/25/2020 11:32 am REASON FOR STUDY: left pelvic pain COMPARISON: None. TECHNIQUE: Dynamic and static grayscale images acquired of the pelvis via transvaginal approach and recorded on PACS. Additional selected color Doppler and spectral images recorded. LIMITATIONS: None. FINDINGS: UTERUS: Contour normal. No mass. ENDOMETRIAL STRIPE: No focal or generalized thickening. No masses. CERVIX: No nabothian cysts. RIGHT OVARY AND DOPPLER: Normal size. 2.9 cm heterogenous complex mass, probably a hemorrhagic cyst. Normal arterial vascular flow without evidence for torsion. LEFT OVARY AND DOPPLER: Normal size. No worrisome masses. Normal arterial vascular flow without evide nce for torsion. FREE FLUID: None noted. OTHER: No other significant finding. MEASUREMENTS: UTERUS: 3.7 x 5.7 x 9.3 cm. ENDOMETRIAL STRIPE: 5.1 mm. RIGHT OVARY: 2.6 x 3.2 x 3.8 cm. LEFT OVARY: 1.9 x 2.1 x 3.0 cm. IMPRESSION: 2.9 CM PROBABLE HEMORRHAGIC CYST IN THE RIGHT OVARY. RECOMMEND FOLLOW-UP ULTRASOUND IN 6- 12 WEEKS. NO OTHER SIGNIFICANT FINDINGS. COMMENT: Followup of asymptomatic indeterminate ovarian cysts detected by ultrasound in PREMENOPAUS AL patients Cyst with findings suggestive of, but not classic for, hemorrhagic cyst, endometrioma or dermoid: *6-12 week followup US; if not a resolving hemorrhagic cyst, continued US or MRI followup; if endomet rioma or dermoid still not confirmed, consider surgical consultation Single thin septation or focal wall calcification: *Same as for benign cyst, based on size Multiple septations: *Consider surgical consultation Nodule in a cyst: *No blood flow in nodule: MRI or surgical consultation *Blood flow in nodule: surgical consultation Note: If cyst is clinically symptomatic or otherwise concerning, other followup may be warranted. Based on recommendations of the Society for Radiologists in Ultrasound Consensus Conference Statement 2010 on management of asymptomatic ovarian and other adnexal cysts imaged at ultrasound. TECHNICAL DOCUMENTATION: JOB ID: [id number] 8 [employer]- All Rights Reserved Rev Reading location - IP/workstation name: [email or web address]-
[2020-06-25 12:18] LABS: CHLAM PCR NOT DETECTED (NOT DETECT)
[2020-06-25 12:40] VITALS: BP 134/93
== END 2020-06-25 12:40 | disposition home or self-care (01) ==
LOC: ER 08:27
DX: N83.201 Unspecified ovarian cyst, right side (principal); R10.2 Pelvic and perineal pain; N92.6 Irregular menstruation, unspecified; I10 Essential (primary) hypertension; Z98.51 Tubal ligation status
CPT/HCPCS: 76830; 81001; 81025; 87210; 87491; 87591; 93976; 99284